=== PATIENT | female | born 1955 | race Caucasian/White ===

== ENCOUNTER 2021-05-03 15:31 | Outpatient (CLI) | payer MEDICARE, SELFPAY ==
--- NOTE | ~2021-05-03 | XR_ITS ---
EXAMINATION: XR chest 2V DATE: 05/03/2021 15:49 INDICATION: Generalized hyperhidrosis. Shortness of breath. TECHNIQUE: Frontal and lateral views of the chest were obtained. COMPARISON: Chest 2 views 11/23/2016, CT abdomen and pelvis 04/13/2017 FINDINGS: The chest demonstrates clear lungs without pneumonia, pleural effusion, or pneumothorax. Th e heart size is normal. There are surgical clips in the abdomen. IMPRESSION: 1. No acute cardiopulmonary disease. Reviewed, dictated and finalized at location A.
== END 2021-05-03 15:32 | disposition home or self-care (01) ==
LOC: ANHIMG 15:40
PROVIDERS: PCP Family Medicine; Visit Provider Family Medicine
DX: R61 Generalized hyperhidrosis (principal)
CPT/HCPCS: 71046

== ENCOUNTER 2021-05-04 13:33 | Emergency (ER) | payer MEDICARE, SELFPAY ==
--- NOTE | ~2021-05-04 | CT_ITS ---
EXAMINATION: CT abdomen pelvis w con DATE: 05/04/2021 14:49 INDICATION: Epigastric abdominal pain, nausea. Fever. TECHNIQUE: Computed tomography (CT) of the abdomen and pelvis was performed with 100 cc Omnipaque 350 intravenous contrast. Automated exposure control and iterative reconstruction technique were employe d. Exam dose: 648.70 mGy-cm total exam DLP. COMPARISON: 04/13/2017 CT abdomen pelvis 03/17/2018 right upper quadrant abdominal ultrasound examination FINDINGS: There is minimal dependent bilateral lower lobe atelectasis. Normal heart size. No pericard ial or pleural effusion. Very small sliding hiatal hernia. Status post cholecystectomy. Scattered hepatic probable cysts, the largest measuring up to approximately 4.2 cm compared to 3 cm o n 04/13/2017. No interval suspicious hepatic mass lesion. No bile duct or pancreatic duct dilatation i s evident in this postcholecystectomy patient. Spleen is within upper limits of normal size at 12.5 cm vertical dimension, with 14 cm being upper li mits of normal. Normal morphology of the adrenal glands. At least several cysts of each kidney are noted as well, the largest on the right measuring up up to 1.5 cm, the largest on the left 4 cm. No urinary tract calculus or hydroureteronephrosis. The urinary bladder is unremarkable. Approximatel y 12 mm densely calcified right uterine fibroid. The uterus and adnexal areas are otherwise unremarka ble. There is atherosclerotic calcification of the abdominal aorta but no aneurysm. No intraperitoneal or retroperitoneal or pelvic mass lesion or adenopathy or ascites. Numerous diverticula of the sigmoid and descending colon; no CT evidence of diverticulitis. Fluid level and distention up to 4.1 cm of the duodenum. There are numerous fluid containing small florina wel segments with scattered small bowel air-fluid levels, without abnormal dilatation of jejunum or i leum. Findings may be due to mild adynamic ileus or enteritis. No bowel obstruction or intraperitonea l free air. Very small fat-containing umbilical hernia. Status post appendectomy. There are multiple vertebral body hemangiomas in the lower thoracic spine and L1. Bilateral hip osteoarthritis. IMPRESSION: Mild duodenal dilatation and fluid level and some fluid containing small bowel segments with scattered small bowel air-fluid levels, without obstruction; differential diagnosis includes ent eritis, mild adynamic ileus Very small sliding hiatal hernia Status post cholecystectomy Status post appendectomy Hepatic cysts Bilateral renal cysts Reviewed, dictated and finalized at Location A. Reviewed, dictated and finalized at location A. IMPRESSION: Mild duodenal dilatation and fluid level and some fluid containing small bowel segments with scattered small bowel air-fluid levels, without obst ruction; differential diagnosis includes enteritis, mild adynamic ileus Very small sliding hiatal hernia Status post cholecystectomy Status post appendectomy Hepatic cysts Bilateral renal cysts
--- NOTE | 2021-05-04 13:42 | ED.ABDPAIN ---
HPI - Abdominal Pain General Chief Complaint: Abdominal Pain Stated Complaint: abd pain Time Seen by Provider: 05/04/21 13:40 Source: patient Mode of arrival: ambulatory Limitations: no limitations History of Present Illness HPI narrative: 66 years old white female presents with upper abdominal pain, increased shortness of breath, nausea and low-grade fever started 5 days ago, was seen by her family physician yesterday and underwent labs, and chest x-ray. Her symptoms got worse today. Patient reports some nausea, denies vomiting also reports some low-grade fever last Advil intake was 6 hours prior to arrival. History of hypertension, appendectomy, cholecystectomy. Patient quit smoking 6 years ago, drinks alcohol daily for years, uses marijuana as needed. Last alcohol intake 4 days ago Related Data Allergies Allergy/AdvReac Type Severity Reaction Status Date / Time No Known Allergies Allergy Verified 05/04/21 13:33 Review of Systems Review of Systems: Narrative: CONSTITUTIONAL: Denies fever, chills, or sweats. EYES: Denies visual changes, redness, or discharge. ENT: Denies rhinorrhea, congestion, sore throat, or otalgia. CARDIOVASCULAR: Denies chest pain, palpitations, or edema. RESPIRATORY: Denies cough or dyspnea. GASTROINTESTINAL: Denies abdominal pain, nausea, vomiting, or diarrhea. GENITOURINARY: Denies dysuria or hematuria. SKIN: Denies rash or itching. MUSCULOSKELETAL: Denies back pain, joint pain, or myalgia. NEUROLOGIC: Denies headache, numbness, or weakness. PSYCHIATRIC: Denies anxiety or depression. [facility] Past Medical History Medical History Benign essential HTN BMI 29.0-29.9,adult Chronic insomnia Degenerative arthritis of knee, bilateral GERD (gastroesophageal reflux disease) MDD (major depressive disorder), recurrent episode, moderate Surgical History Surgical History H/O elbow surgery H/O knee surgery waiting on records, date unknown H/O wrist surgery History of appendectomy History of cholecystectomy Family History Family History Mother Family history of malignant neoplasm of ovary Grandparent Family history of heart disease in male family member before age 55 Diabetes mellitus Other Family history of cardiovascular disease Social History Social History Smoking packs per day: 0.75 Smoking cigarettes per day: 15.0 Years smoked: 40 Smoking pack-years: 30.00 Smoking status: Former smoker Tobacco type: cigarettes Second hand tobacco smoke exposure: No Smoking end date: 11/30/14 Alcohol intake: current Drinks per week: 8 Substance use: never Substance use type: does not use Gender identity (if verbalized by the patient): Female Exam Narrative: Exam Narrative: General appearance: Well-developed, well-nourished, ill looking, anxious Skin: Normal color Head: Normocephalic, nontraumatic Eyes: Clear conjunctiva ENT: Oropharynx normal, ears normal, nose normal Neck: Supple, nontender Chest and respiratory: Airway patent, no respiratory distress, no accessory muscle use Heart: Regular rate/rhythm Abdomen: Soft, moderate tenderness epigastric and right upper quadrant, no organomegaly, quiet bowel sounds Vascular: Normal peripheral pulses, normal capillary refill. 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
[2021-05-04 13:57] VITALS: BP 128/86; PULSE 111; RESP 15; TEMP 36.7; O2SAT 98
[2021-05-04 14:11] LABS: Basophils Percent Auto 0.4 % (0.2-1.2); Eosinophils Absolute Auto 0.2 K/mm3 (0-0.3); Eosinophils Percent Auto 2.2 % (0-4.4); Hematocrit 39.7 % (37.0-47.0); Hemoglobin 13.7 g/dL (12.0-15.0); Immature Granulocyte Absolute 0.04 K/mm3 (0.00-0.031); Immature Granulocyte Percent A 0.5 % (0-0.5); Lymphocytes Absolute Auto 0.79 K/mm3 (0.9-3.2); Lymphocytes Percent Auto 9.8 % (18.3-44.2); Mean Corpuscular HGB Conc 34.5 g/dl (32-36); Mean Corpuscular Hemoglobin 31.3 pg (26-34); Mean Corpuscular Volume 90.6 fl (80-100); Monocytes Absolute Auto 1.4 K/mm3 (0.1-0.6); Monocytes Percent Auto 17.3 % (2.6-8.5); Neutrophils Absolute Auto 5.7 K/mm3 (1.3-6.7); Neutrophils Percent Auto 69.8 % (45.5-73.1); Platelet Count Result 258 k/mm3 (150-375); Red Blood Count 4.38 M/mm3 (4.2-5.4); Red Cell Distribution Width 12.8 % (11.5-14.5); White Blood Count 8.1 K/mm3 (4.5-10.0)
[2021-05-04] MEDS: HYDROmorphone HCL INJ (*CRX) 1 MG/ML SYR 0.5 MG IV PUSH (14:14)
[2021-05-04] MEDS: SODIUM CHLORIDE 0.9% IV 1,000 ML 999 ML IV CONT (14:15)
[2021-05-04] MEDS: ONDANSETRON INJ 4 MG/2 ML VIAL IV PUSH (14:15)
[2021-05-04 14:21] LABS: Alanine Aminotransferase 86 U/L (4-35); Alkaline Phosphatase 213 U/L (38-126); Anion Gap 10 mmol/L (8-16); Aspartate Amino Transferase 39 U/L (14-36); Bilirubin,Total 0.9 mg/dL (0.2-1.3); Blood Urea Nitrogen 6 mg/dL (7-17); Carbon Dioxide 21 mmol/L (22-30); Chloride 98 mmol/L (98-107); Estimated CRCL calculation 105 ml/min; Estimated Glomerular Filt Rate > 60; Glucose 119 mg/dL (65-105); Lipase 110 U/L (23-300); Potassium 3.6 mmol/L (3.4-5.0); Sodium 129 mmol/L (137-145)
[2021-05-04 14:37] LABS: INR 0.9; Prothrombin Time 12.8 Seconds (11.1-14.7)
[2021-05-04 15:21] LABS: Add Urine Microscopic? YES; Appearance Urine Clear (Clear); Bilirubin Urine Negative (Negative); Blood Urine 1+ (Negative); Color Urine Straw (Yellow); Glucose Urine UA Negative (Negative); Ketones Urine Negative (Negative); Leukocyte Esterase Ur Negative LEU/UL (Negative); Nitrate Urine Negative (Negative); Protein Urine Negative (Negative); Specific Grav Ur 1.019 (1.001-1.035); Squamous Epithelial Cell Urine Rare /hpf (Few); Transitional Epi Cells Urine Rare /hpf (None Seen); Urobilinogen Urine Negative mg/dL (<2.0); WBC Urine 0-3 /hpf
[2021-05-04 16:14] VITALS: BP 90/62; PULSE 102; RESP 24; O2SAT 95
== END 2021-05-04 16:17 | disposition home or self-care (01) ==
PROVIDERS: Emergency Provider Emergency Medicine; PCP Family Medicine
DX: E87.1 Hypo-osmolality and hyponatremia (principal); R10.10 Upper abdominal pain, unspecified; I10 Essential (primary) hypertension; M17.0 Bilateral primary osteoarthritis of knee; K21.9 Gastro-esophageal reflux disease without esophagitis; Z87.891 Personal history of nicotine dependence; K44.9 Diaphragmatic hernia without obstruction or gangrene; K76.89 Other specified diseases of liver; N28.1 Cyst of kidney, acquired
CPT/HCPCS: 36415; 74177; 80053; 81001; 83690; 85025; 85610; 96361; 96374; 96375; 99284; J1170; J2405; J7030; Q9967

== ENCOUNTER → 2021-08-07 12:16 | Outpatient (CLI) | payer MEDICARE, SELFPAY ==
--- NOTE | ~2021-08-07 | MM_ITS ---
EXAMINATION: MM screening main BI w yuok HISTORY: Screening mammogram TECHNIQUE: Craniocaudal and mediolateral oblique 3-D tomosynthesis images were obtained and synthetic 2-D images were generated. CAD analysis was submitted and interpreted. COMPARISON: 04/17/2019 bilateral digital screening mammogram BREAST PARENCHYMAL COMPOSITION: There are scattered areas of fibroglandular density. FINDINGS: There is no evidence of suspicious mass, calcification, or architectural distortion to sugg est malignancy in either breast. There has been no suspicious interval change. IMPRESSION: 1. No mammographic evidence of malignancy. 2. Recommend routine screening mammography in one year. BI-RADS Category 1: Negative Reviewed, dictated and finalized at location A.
== END ==
PROVIDERS: PCP Family Medicine; Visit Provider Family Medicine
DX: Z12.31 Encounter for screening mammogram for malignant neoplasm of breast (principal)
CPT/HCPCS: 77063; 77067

== ENCOUNTER 2022-06-10 08:29 | Outpatient (RCR) | payer MEDICARE, SELFPAY ==
[2022-06-10 08:35] VITALS: BP_SYST 125
--- NOTE | 2022-06-10 09:47 | PTOPEVAL ---
PHYSICAL THERAPY EVALUATION Thank you for referring Saritha Hong to [facility].? No visits were scheduled. She was provided with education and HEP and will work independently on HEP. Please review, sign, date and return this plan of care ANY. I agree with and certify that the following plan of care is medically necessary. Referring Physician Date Diagnosis right shoulder pain Onset chronic Subjective Information Saritha reports years of right Query Text:As Reported By Patient/ shoulder pain. States that it Family has recently gotten worse. There is a lot of clicking. limited ROM. Self Report Pain Assessment Right Shoulder(s) Reported Pain Level 2 Pain Frequency Chronic,Continuous Greatest Pain Intensity 6 Pain Score Pain Score 2: Self Report Interventions Used Interventions Used By Clinicians Exercise,Manual Therapy Techniques Upper Extremity Range of Motion Scapular/ Shoulder Range of Motion Right Shoulder Flexion - Active 90 Shoulder Flexion - Passive 125 Shoulder Abduction - Active 90 Shoulder Abduction - Passive 125 Shoulder Lateral Rotation - Passive 70 Scapular/Shoulder Range of Motion refused to demonstrate behind Comments the back due to pain; generally uncomfortable end ranges with active and passive ROM Upper Extremity Muscle Strength Testing General Upper Extremity Strength Gross Upper Extremity Strength Comments internal rotation: 4/5, external rotation 3+/5; elevation: 3-/5 PT Clinical Summary Saritha is a 67 yo female presenting to outpatient physical therapy with chronic right shoulder pain. She states that she feels she will ultimately need shoulder replacement surgery and is ready for that if and when needed. She does demonstrate less than functional right shoulder ROM and painful end range Passive ROM. She demonstrates generally decreased right shoulder strength and poor periscapular activation. She was provided with HEP to promote ROM and periscapular strength in order to prepare for surgery. She
--- NOTE | 2022-07-09 08:26 | PCPTNOTE ---
PHYSICAL THERAPY DISCHARGE NOTE Attending Provider: Arron Flores MD Patient:Saritha Hong Date of :1955 Patient has not returned for any further treatments since 06/10/2022, therefore she will be discharged at this time. Patient?s initial visit was on 06/10/2022 at which time she was evaluated and provided with explanation of assessment and provided with HEP. She was told she could return within 30 days if she needed any assistance with HEP or other questions about her diagnosis. She has not communicated and 30days have passes. Thank you for referring this patient to [facility]. Please review, sign, date and return this discharge summary ANY. I have been updated about the patient's current status and I agree with discharge from the above service at this time. Referring Physician Date
== END 2022-07-09 12:30 | disposition home or self-care (01) ==
LOC: ANHPT 08:29
PROVIDERS: PCP Family Medicine; Referring Provider Orthopaedic Surgery; Visit Provider Orthopaedic Surgery
DX: M19.011 Primary osteoarthritis, right shoulder (principal)
CPT/HCPCS: 97110; 97161

== ENCOUNTER 2022-10-20 10:05 | Emergency (ER) | payer MEDICARE, SELFPAY ==
--- NOTE | ~2022-10-20 | XR_ITS ---
EXAMINATION: XR humerus LT DATE: 10/20/2022 11:06 INDICATION: Left upper limb pain. TECHNIQUE: 2 views of the left humerus were obtained. COMPARISON: None. FINDINGS: Bone alignment is normal. No acute fracture. There is moderate osteoarthritis of acromiocla vicular joint and glenohumeral joint. IMPRESSION: 1. Polyarticular osteoarthritis. Reviewed, dictated and finalized at location A. TER OPERATOR
--- NOTE | ~2022-10-20 | XR_ITS ---
EXAMINATION: XR forearm LT 2V DATE: 10/20/2022 11:06 INDICATION: Left forearm injury and pain. TECHNIQUE: 2 views of left forearm were obtained. COMPARISON: None. FINDINGS: Bone alignment is normal. No fracture. There is moderate osteoarthritis of first carpometac arpal joint and mild osteoarthritis of the elbow joint. No elbow joint effusion. IMPRESSION: 1. Polyarticular osteoarthritis. Reviewed, dictated and finalized at location A. RY ADJUSTER
[2022-10-20 10:35] VITALS: BP 165/87; PULSE 79; RESP 18; TEMP 36.2; O2SAT 99
--- NOTE | 2022-10-20 10:54 | ED.UPPEXIN ---
HPI - Extremity Injury (Upper) General Chief Complaint: Extremity Injury, Upper Stated Complaint: lt arm injury Time Seen by Provider: 10/20/22 10:55 Source: patient Mode of arrival: ambulatory Limitations: no limitations History of Present Illness HPI narrative: 67 y/o female presented for c/o left arm pain after injury this morning. She states her dog ran into her arm, she outstretched the arm to the side when it struck her bicep. She endorses pain to the biceps and occasional numbness sensation to the fingers. She denies bruising, tingling or weakness of the extremity. Endorses decreased range of motion at the shoulder. She has not taken anything for pain. Related Data Allergies Allergy/AdvReac Type Severity Reaction Status Date / Time No Known Allergies Allergy Verified 10/20/22 10:57 Review of Systems Review of Systems: ROS per HPI. All systems reviewed & are unremarkable except as noted in HPI and below PMFSH Past Medical History Medical History Arthritis of right shoulder region Benign essential HTN BMI 29.0-29.9,adult Chronic insomnia Degenerative arthritis of knee, bilateral GERD (gastroesophageal reflux disease) MDD (major depressive disorder), recurrent episode, moderate Surgical History Surgical History H/O elbow surgery H/O knee surgery waiting on records, date unknown H/O wrist surgery History of appendectomy History of cholecystectomy Family History Family History Mother Family history of malignant neoplasm of ovary Grandparent Family history of heart disease in male family member before age 55 Diabetes mellitus Other Family history of cardiovascular disease Social History Social History Social History: Domestic Partner Smoking packs per day: 0.75 Smoking cigarettes per day: 15.0 Years smoked: 40 Smoking pack-years: 30.00 Smoking status: Former smoker Tobacco type: cigarettes Second hand tobacco smoke exposure: No Smoking end date: 11/30/14 Alcohol intake: current Alcohol use details: Occasionally/socially Substance use: never Substance use type: does not use Gender identity (if verbalized by the patient): Female Sexual Orientation (if Verbalized by the Patient): Straight or Heterosexual Comments At time of signature, I have reviewed and agree with nursing past medical, surgical, social and family history unless otherwise noted. Please see nursing chart for further information. There is no relevant family history pertinent to the presenting complaint Exam Narrative: GENERAL: Well-appearing, well-nourished, and in no acute distress. CHEST: Speaks in full sentences. No respiratory distress. HEART: Regular rate and rhythm. Normal and equal peripheral pulses. EXTREMITIES: PREETI has slightly decreased strength in hand, reporting bicep pain with animal anatomist; slightly decreased active range of motion at shoulder, endorses pain to bicep with movement. normal sensation to RUE; Tender bicep with palpation. No edema or ecchymosis, No point tenderness. No open wounds or obvious deformity; alignment normal, pulse palpable and equal bilaterally, skin warm, dry, pink. Capillary refill less than 3 seconds. SKIN: Warm, dry, no rash. NEURO: Alert and oriented x3. PSYCH: Normal mood and affect Course Course Emergency Course: Patient is aware of diagnosis, understands and agrees to treatment plan. Anticipatory guidance given. Patient agrees to follow-up as directed and is aware of reasons to seek care at the emergency department. Portions of this record may have been created with voice recognition software Level of Care: Express Care Visit Vital Signs Vital signs: Vital Signs Temperature 97.2 F L 10/20/22 10:35 Pulse Rate 79
== END 2022-10-20 11:30 | disposition home or self-care (01) ==
PROVIDERS: Emergency Provider Nurse Practitioner Family; PCP Family Medicine
DX: S49.92XA Unspecified injury of left shoulder and upper arm, initial encounter (principal); I10 Essential (primary) hypertension; M17.2 Bilateral post-traumatic osteoarthritis of knee; M19.012 Primary osteoarthritis, left shoulder; M19.011 Primary osteoarthritis, right shoulder; K21.9 Gastro-esophageal reflux disease without esophagitis; F33.9 Major depressive disorder, recurrent, unspecified; Z87.891 Personal history of nicotine dependence; M18.9 Osteoarthritis of first carpometacarpal joint, unspecified; M19.022 Primary osteoarthritis, left elbow; W54.1XXA Struck by dog, initial encounter
CPT/HCPCS: 73060; 73090; 99213; A4565; G0463

== ENCOUNTER 2024-04-26 11:04 | Outpatient (CLI) | payer MEDICARE, SELFPAY ==
--- NOTE | ~2024-04-26 | MM_ITS ---
EXAMINATION: MM screening main BI w yuko HISTORY: Screening TECHNIQUE: Craniocaudal and mediolateral oblique 3-D tomosynthesis images were obtained and synthetic 2-D images were generated. CAD analysis was submitted and interpreted. COMPARISON: Comparison to multiple prior studies sequentially, with oldest reviewed study dated 07/2019. BREAST PARENCHYMAL COMPOSITION: Not dense: There are scattered areas of fibroglandular density. FINDINGS: There is no evidence of suspicious mass, calcification, or architectural distortion to sugg est malignancy in either breast. There has been no suspicious interval change. IMPRESSION: 1. No mammographic evidence of malignancy. 2. Recommend routine screening mammography in one year. BI-RADS Category 1: Negative Reviewed, dictated and finalized at location B.
--- NOTE | ~2024-04-26 | DEXA_ITS ---
Bone Density Report Name: PAULINA TRAN Age: 69 Sex: Female Ethnicity: White Date of : 1955 Indication: postmenopausal; screening for osteoporosis; height loss; Referring Provider: RICARDO SALGADO Study: Bone densitometry was performed. Exam Date: April 26, 2024 Accession number: [id number] Bone Density: Region BMD T-score Z-score Classification AP Spine (L1-L4) 1.108 0.6 2.7 Normal Femoral Neck (Left) 0.846 0.0 1.8 Normal Total Hip (Left) 0.900 -0.3 1.2 Normal Femoral Neck (Right) 0.852 0.0 1.8 Normal Total Hip (Right) 0.913 -0.2 1.3 Normal Total Hip Mean 0.907 -0.3 1.3 Normal World Health Organization criteria for BMD impression classify patients as: Normal (T-score at or above -1.0), Osteopenia (T-score between -1.0 and -2.5), or Osteoporosis (T-score at or below -2.5). 10-year Fracture Risk: FRAX not reported because: All T-scores for Spine Total, Hip Total, Femoral Neck at or above -1.0 Previous Exams: Region Exam Age BMD T-score BMD Change BMD Change Date g/cm2 vs Baseline vs Previous AP Spine(L1-L4) 04/26/2024 69 1.108 0.6 0.024* 0.024* 04/07/2019 64 1.084 0.3 Total Hip(Left) 04/26/2024 69 0.900 -0.3 -0.019 -0.019 04/07/2019 64 0.919 -0.2 Total Hip(Right) 04/26/2024 69 0.913 -0.2 -0.008 -0.008 04/07/2019 64 0.922 -0.2 *Denotes significance at 95% confidence level, LSC for AP Spine = 0.022 g/cm2, LSC for Total Hip = 0.027 g/cm2 Clinical Information Provided by Patient: Patient maximum height was 68.5 Menopause Age: 49 No regular weight bearing exercise Drinks caffeinated beverages Onset of menses at age 13 Number of children 1 Impression: The patient has normal bone mass. No significant bone loss was observed. Discussion: BONE DENSITY IS ABOVE THE MINIMUM DESIRABLE LEVEL AT ALL SKELETAL SITES TESTED. This patient?s bone mineral density is above the minimum desirable level (T-score -1.0 or better) at all sites measured. The patient should follow a healthful lifestyle (good nutrition with adequate calcium and vitamin D, and appropriate weight-bearing exercise). Follow-Up: Consider repeating this study in 5 years or sooner if there is some new clinical indication. Reported by: PATRICK on 04/26/2024 11:28:00 AM. Reviewed, dictated and finalized at location A.
== END 2024-04-26 11:05 ==
LOC: MICIMG 11:05
PROVIDERS: PCP Family Medicine; Visit Provider Family Medicine
DX: Z12.31 Encounter for screening mammogram for malignant neoplasm of breast (principal); Z78.0 Asymptomatic menopausal state; Z13.820 Encounter for screening for osteoporosis
CPT/HCPCS: 77063; 77067; 77080

== ENCOUNTER 2024-05-19 13:46 | Outpatient (CLI) | payer MEDICARE, SELFPAY ==
--- NOTE | ~2024-05-19 | CT_ITS ---
EXAMINATION:CT lung screening DATE: 05/19/2024 14:02 INDICATION: Personal history of nicotine dependence. Smoker who quit 8 years ago with 30 pack year hi story. TECHNIQUE: Computed tomography (CT) of the chest was performed without intravenous contrast. Automate d exposure control and iterative reconstruction technique were employed. The dose-length product (DLP ) was 69.70 mGy-cm. COMPARISON: Chest CT 12/09/2016, CT abdomen and pelvis 05/04/2021 FINDINGS: There is mild scarring at the lung apices. There is a 3 mm nodule in right middle lobe. The re is mild atelectasis bilaterally. No pleural effusion. There are nodules in the thyroid measuring u p to 10 mm, likely clinically significant. The heart size is normal. There is subendocardial fat invo lving anterior wall of left ventricle, consistent with old infarct. There are coronary artery calcifi cations. No pericardial effusion. There are cysts in the liver measuring up to 4.8 cm. There are leilani nges of cholecystectomy. There is a 3.1 cm cyst in left kidney. There is severe cervical spondylosis and mild thoracic spondylosis. There are multiple hemangiomas in thoracic spine. IMPRESSION: 1. Lung-RADS category 2: Benign appearance or behavior. Continue annual screening with noncontrast lo w-dose chest CT in 12 months. Reviewed, dictated and finalized at location A. IMPRESSION: 1. Lung-RADS category 2: Benign appearance or behavior. Continue annual screeni ng with noncontrast low-dose chest CT in 12 months.
== END 2024-05-19 13:47 | disposition home or self-care (01) ==
LOC: ANHIMG 13:46
PROVIDERS: PCP Family Medicine; Visit Provider Family Medicine
DX: Z12.2 Encounter for screening for malignant neoplasm of respiratory organs (principal); Z87.891 Personal history of nicotine dependence
CPT/HCPCS: 71271

== ENCOUNTER 2024-07-11 09:31 | Outpatient (CLI) | payer MEDICARE, SELFPAY ==
--- NOTE | 2024-07-11 09:36 | ECHO_ITS ---
Patient Info Name: Saritha Hong Age: 69 years : 1955 Gender: Female Ht: 68 in Wt: 160 lbs BSA: 1.87 m2 HR: 82 bpm BP: 141 / 92 mmHg Heart Rhythm: Sinus Rhythm Technical Quality: Good Exam Date: 07/11/2024 9:57 AM Exam Location: Echo Lab Patient Status: Outpatient Admit Date: 07/11/2024 Staff Ordering Physician: Darvin Castañeda DO Pipe Stem Sawyer: Saumya Freedman RDCS Attending Provider: Darvin Castañeda DO Referring Physician: Garry BOWERS; Exam Type: CA echo doppler color flow Study Info Indications R06.09 - Other forms of dyspnea Summary 1. Left ventricular chamber dimension is mildly enlarged. 2. Left ventricular systolic function is normal, estimated at 60-65%. 3. The left ventricular diastolic function is grade I diastolic dysfunction. 4. E/e' 12 is mildly elevated. 5. Left atrial chamber dimension is mildly enlarged. 6. There is mild aortic valve sclerosis. 7. There is trace aortic valve regurgitation. 8. No pulmonary hypertension, estimated pulmonary arterial systolic pressure is 18 mmHg. Left Ventricle E/e' 12 is mildly elevated. Left ventricular chamber dimension is mildly enlarged. Left ventricular systolic function is normal, estimated at 60-65%. The left ventricular diastolic function is grade I diastolic dysfunction. Right Ventricle Right ventricular systolic function is normal and with normal TAPSE 2.7 cm. Right ventricular chamber dimension is normal. Left Atria Left atrial chamber dimension is mildly enlarged. Right Atria Right atrial chamber dimension is normal. Aortic Valve The aortic valve is trileaflet. There is mild aortic valve sclerosis. There is no aortic valve stenosis. There is trace aortic valve regurgitation. Pulmonic Valve There is no pulmonic regurgitation. Mitral Valve There is no mitral valve stenosis. There is no mitral valve regurgitation. Tricuspid Valve There is no tricuspid valve regurgitation. No pulmonary hypertension, estimated pulmonary arterial systolic pressure is 18 mmHg. Pericardium/Pleural There is no pericardial effusion. Inferior Vena Cava Normal inferior vena cava with >50% collapse upon inspiration consistent with normal right atrial pressure, 5 mmHg. Aorta The aortic root size at the sinus of Valsalva is normal. Left Ventricular Outflow Tract Name Value Normal LVOT 2D LVOT Diameter 2.0 cm LVOT Doppler LVOT Peak Gradient 3 mmHg LVOT Mean Gradient 2 mmHg LVOT VTI 19 cm LVOT VTI/AV VTI Ratio 0.6 LVOT Stroke Volume 57 ml LVOT CO 10.6 l/min LVOT CI 5.6 l/min/m2 Pulmonic Valve Name Value Normal RVOT Doppler RVOT Peak Gradient 2 mmHg PV Doppler PV Peak Gradi
== END 2024-07-11 09:32 | disposition home or self-care (01) ==
PROVIDERS: PCP Family Medicine; Visit Provider Internal Medicine Cardiovascular Disease
DX: R06.09 Other forms of dyspnea (principal); I51.89 Other ill-defined heart diseases; I35.8 Other nonrheumatic aortic valve disorders
CPT/HCPCS: 93306

== ENCOUNTER 2024-08-04 09:15 | Outpatient (CLI) | payer MEDICARE, SELFPAY ==
--- NOTE | 2024-08-04 09:24 | EST_ITS ---
Patient Info Name: Saritha Hong Age: 69 years : 1955 Gender: Female Ht: 68 in Wt: 162 lbs BSA: 1.89 m2 BP: 116 / 80 mmHg Technical Quality: Good Exam Date: 08/04/2024 9:36 AM Exam Location: Echo Lab Patient Status: Outpatient Admit Date: 08/04/2024 Staff Ordering Physician: Harmony Guan MD Manager Highway: Bertha Mccrary RDCS Attending Provider: Harmony Guan MD Referring Physician: Roge JUDD; Exercise Technologist: Miguelina Latham CT Exercise Physician: Darvin Castañeda DO Exam Type: CA stress echo Study Info Indications R94.31 - Abnormal electrocardiogram ECG EKG Treadmill exercise stress echocardiogram is performed. Summary 1. 1. Negative Jagjit exercise stress test for ischemic ST changes by ECG criteria. 2. 2. Reduced functional capacity, achieving 6.5 METs of workload. 3. 3. Appropriate HR response to exercise. 4. 4. Appropriate HR recovery at 1 minute post exercise. 5. 5. Negative stress echocardiogram for ischemia by wall motion analysis. 6. 6. Patient informed of the above results. Stress Echo Findings Left Ventricle Appropriate increase in LV endocardial thickening with systole. Appropriate augmentation of contractility with systole. No wall motion abnormality. Left Ventricle Normal LV systolic function, no wall motion abnormality. Protocol: Jagjit Stress ECG Details Stage: REST Duration (min): 3 min : 13 sec Speed (mph): 0.0 Grade (%): 0 HR (bpm): --- SBP (mmHg): --- DBP (mmHg): --- METS: --- Stage: REST Duration (min): 7 min : 1 sec Speed (mph): 0.0 Grade (%): 0 HR (bpm): 71 SBP (mmHg): 116 DBP (mmHg): 80 METS: --- Stage: REST Duration (min): 12 min : 22 sec Speed (mph): 0.0 Grade (%): 0 HR (bpm): 71 SBP (mmHg): 116 DBP (mmHg): 80 METS: --- Stage: STAGE 1 Duration (min): 1 min : 0 sec Speed (mph): 1.7 Grade (%): 10 HR (bpm): 96 SBP (mmHg): 116 DBP (mmHg): 80 METS: --- Stage: STAGE 1 Duration (min): 2 min : 0 sec Speed (mph): 1.7 Grade (%): 10 HR (bpm): 88 SBP (mmHg): 116 DBP (mmHg): 80 METS: --- Stage: STAGE 1 Duration (min): 3 min : 0 sec Speed (mph): 1.7 Grade (%): 10 HR (bpm): 122 SBP (mmHg): 116 DBP (mmHg): 80 METS: --- Stage: STAGE 2 Duration (min): 1 min : 0 sec Speed (mph): 2.5 Grade (%): 12 HR (bpm): 122 SBP (mmHg): 166 DBP (mmHg): 102 METS: --- Stage: STAGE 2 Duration (min): 1 min : 8 sec Speed (mph): 0.0 Grade (%): 0 HR (bpm): 123 SBP (mmHg): 166 DBP (mmHg): 102 METS: --- Stage: RECOVERY Duration (min): 0 min : 51 sec Speed (mph): 0.0 Grade (%): 0 HR (bpm): 97 SBP (mmHg): 173 DBP (mmHg): 94 METS: --- Stage: RECOVERY Duration (min): 1 min : 51 sec Speed (mph): 0.0 Grade (%): 0 HR (bpm): 82 SBP (mmHg): 173 DBP (mmHg): 94 METS: --- Stage: RECOVERY Duration (min): 2 min : 47 sec Speed (mph): 0.0 Grade (%): 0 HR (bpm): 78 SBP (mmHg): 149 DBP (mmHg): 65 METS: --- Res
== END 2024-08-04 09:16 | disposition home or self-care (01) ==
PROVIDERS: PCP Family Medicine; Visit Provider Family Medicine
DX: R94.31 Abnormal electrocardiogram [ECG] [EKG] (principal); Z87.891 Personal history of nicotine dependence
CPT/HCPCS: 93351

== ENCOUNTER 2024-08-29 13:48 | Outpatient (CLI) | payer MEDICARE, SELFPAY ==
--- NOTE | ~2024-08-29 | US_ITS ---
EXAMINATION: US thyroid DATE: 08/29/2024 14:08 INDICATION: Nontoxic single thyroid nodule. TECHNIQUE: Multiple ultrasound images of the thyroid were obtained. COMPARISON: None. FINDINGS: The right thyroid lobe measures 4.3 x 1.3 x 1.5 cm. The left thyroid lobe measures 4.7 x 1.5 x 1.7 c m. In the left thyroid lobe, there is a 10 mm solid, hypoechoic, wider than tall nodule with smooth margin and punctate echogenic foci (TI-RADS TR5). In the left thyroid lobe, there is a 13 mm solid, h ypoechoic, wider than tall nodule with smooth margin and punctate echogenic foci (TR5). There are sub centimeter nodules in the thyroid. IMPRESSION: 1. Multinodular goiter. Ultrasound-guided fine needle aspiration of 2 left thyroid nodules is recomme nded. Reviewed, dictated and finalized at location A. IMPRESSION: 1. Multinodular goiter. Ultrasound-guided fine needle aspiration of 2 left thyr oid nodules is recommended.
== END 2024-08-29 13:49 | disposition home or self-care (01) ==
LOC: MICIMG 13:49
PROVIDERS: PCP Physician Assistant; Visit Provider Physician Assistant
DX: E04.2 Nontoxic multinodular goiter (principal)
CPT/HCPCS: 76536

== ENCOUNTER 2025-04-14 15:10 | Outpatient (CLI) | payer MEDICARE, SELFPAY ==
--- NOTE | ~2025-04-14 | CT_ITS ---
Non-contrast Head CT History: Dizziness and giddiness Technique: Axial non-contrast imaging of the brain was performed. Dose reduction technique was used on this scan by utilizing automated exposure control and iterative reconstruction technique. The dose -length product (DLP) was 605.33 mGy-cm. Findings: There is no evidence of intracranial hemorrhage, mass lesion, or acute infarct. Brain par enchyma appears normal. The ventricles and subarachnoid spaces are normal in size. The calvarium ap pears normal. The visualized paranasal sinuses and mastoid air cells are clear. Impression: No significant abnormality seen. Reviewed, dictated and finalized at location . Impression: No significant abnormality seen.
--- OUTSIDE RECORDS SUMMARY | 2025-04-14 15:21 | XMS_ITS | Clinical Summary ---
Author Organization [facility] Address [address] [place] [address] Care Team Providers Care Weatherstrip Machine Operator Name Role Phone Harmony Guan MD Primary Care Provider + Source Comments [facility],non-owned Affiliates and Associated Physician Practices is amultiple site organization consisting of ambulatory clinics and hospital sitesin [place], [place], [place] and [place]. This disclosure is being madepursuant to the Care Everywhere program and may not contain all information available regarding this patient. Last updated 18.[facility] [employer] Social History Tobacco Use Types Packs/Day Years Used Date Smoking Tobacco: Never Assessed Comments Unknown Sex and Gender Information Value Date Recorded Sex Assigned at Not on file Legal Sex Female 7:22 PM CDT Gender Identity Not on file Sexual Orientation Not on file Plan of Treatment Health Maintenance Due Date Last Done Comments BONE DENSITY TESTING 1955 COLOGUARD (AGES 45-75) - COL ON CA SCREENING 1955 COLON MONITORING 1955 COLONOSCOPY - COLON CA SCREENING 1955 CT COLONOGRAPHY - COLON CA SCREENING 1955 Colorectal Cancer Screening 1955 FIT - COLON CA SCREENING 1955 FLEX SIG - COLON CA SCREENING 1955 LIPID TESTING 1955 MAMMOGRAM 1955 HEPATITIS C SCREENING 01/19/1972 DTAP/TDAP/TD VACCINES (1 - Tdap) 1973 PNEUMOCOCCAL VACCINE 50+ (1 of 1 - PCV) 2004 ZOSTER VACCINE (1 of 2) 2004 COVID-19 VACCINE (2023-2 5 season) 2024 DEPRESSION SCREENING 11/30/2024 MEDICARE AWV CALENDAR YEAR 2024 INFLUENZA VACCINE (Season Ended) 2025 Respiratory Syncytial Virus (RSV) Vaccine Pt: or over 60 yrs (1 - 1-dose 75+ series) 2029 HEPATITIS B VACCINE Aged Out No longe r eligible based on patient's age to complete this topic HIB VACCINE Aged Out No longer eligi ble based on patient's age to complete this topic HPV VACCINE Aged Out No longer eligi ble based on patient's age to complete this topic MENINGOCOCCAL (Group B) VACC INE SHARED DECISION-MAKING Aged Out No longer eligibl e based on patient's age to complete this topic MENINGOCOCCAL GROUPS A/C/Y/W VACCINE Aged Out No longer eligible b ased on patient's age to complete this topic Insurance [facility] MANAGED MEDICARE ADV Care Teams Weatherstrip Machine Operator Relationship Specialty Start Date End Date Harmony Guan MD [address] [place] [address] PCP - General 06/10/18
--- OUTSIDE RECORDS SUMMARY | 2025-04-14 15:21 | XMS_ITS | Clinical Summary ---
Author Organization [facility] Address [address] [place] [address] Care Team Providers Care Technical Writing Lead/Mgr Name Role Phone Harmony Guan MD Primary Care Provider [phone]- [phone] Allergies No known active allergies Medications FLUoxetine (PROzac) 10 mg tablet Take 10 mg by mouth daily. Active losartan-hydroC HLOROthiazide (HYZAAR) 50-12.5 mg tablet Take 1 Tablet by mouth daily. Active zolpidem (AMBIEN CR) 12.5 mg Controlled Release tablet Take 12.5 mg by mouth nightly as needed for Insomnia. 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 EAR, NOSE AND THROAT [facility] [address] [place] [address] [address] [place] [address] Tony Beltrán MD Needs Appointment from Last 3 Months Family History Medical History Relation Name Comments No Known Problems Brother 1 No Known Problems Brother 2 No Known Problems Brother 3 No Known Problems Father Ovarian Cancer Mother Other Sister 1 No Known Problems Sister 2 No Known Problems Sister 3 Relation Name Status Comments Brother 1 Alive Brother 2 Alive Brother 3 Alive Father Mother Sister 1 Alive Sister 2 Alive Sister 3 Alive Social History Tobacco Use Types Packs/Day Years Used Date Smoking Tobacco: Former Cigarettes Q uit: 12/04/2014 Alcohol Use Standard Drinks/Week Comments Yes 4 (1 standard drink = 0.6 oz pur e alcohol) Comments No Sex and Gender Information Value Date Recorded Sex Assigned at Not on file Legal Sex Female 1:34 PM JIGGER OPERATOR Gender Identity Not on file Sexual Orientation Not on file Last Filed Vital Signs Vital Sign Reading Time Taken Comments Blood Pressure 122/80 12/11/2016 11:13 AM JIGGER OPERATOR Pulse 84 12/11/2016 11:13 AM JIGGER OPERATOR Temperature 36.3 C (97.4 F) 12/11/2016 11:13 AM JIGGER OPERATOR Respiratory Rate 18 12/11/2016 11:13 AM JIGGER OPERATOR Oxygen Saturation - - Inhaled Oxygen Concentration - - Weight 98.1 kg (216 lb 3.2 oz) 12/11/2016 11:13 AM JIGGER OPERATOR Height 175.3 cm (5' 9 ) 12/11/2016 11:13 AM JIGGER OPERATOR Body Mass Index 31.93 12/11/2016 11:13 AM JIGGER OPERATOR Plan of Treatment Upcoming Encounters Date Type Department Care Team (Late st Contact Info) Description 05/04/2025 9:00 AM CDT Office Visit [facility], [facility] [address] [facility] [address] [place] [address] Tony Mayes MD [address] [facility] [address] [facility] [address] [place] [address] Health Maintenance Due Date Last Done Comments DTAP/TDAP/TD VACCINES (1 - Tdap) 1973 BREAST CANCER SCREENING 1994 COLORECTAL SCREENING 1999 Colorectal Cancer Screening 1999 FIT-DNA Q 3 years 1999 FIT/FOBT Q 1 year 1999 Flex Sig/CT Colonography Q 5 years 1999 PNEUMOCOCCAL VACCINE 50+ YEARS (1 of 1 - PCV) 01/23/20 04 ZOSTER VACCINE (1 of 2) 2004 OSTEOPOROSIS SCREENING 2019 INFLUENZA VACCINE (#1) 2024 RSV VACCINE (60+ or ) (1 - 1-dose 75+ series) 2029 Insurance [facility] [id number] [facility] Address: [facility] [id number] [place] [address] Care Teams Technical Writing Lead/Mgr Relationship Specialty Start Date End Date Harmony Guan MD PCP - General Family Practice 11/27/16
== END 2025-04-14 15:11 | disposition home or self-care (01) ==
PROVIDERS: PCP Family Medicine; Visit Provider Student in an Organized Health Care Education/Training Program
DX: R42 Dizziness and giddiness (principal); G93.9 Disorder of brain, unspecified
CPT/HCPCS: 70450